=== PATIENT | female | born 2000 | race African-American/Black ===

== ENCOUNTER 2022-03-06 21:39 | Inpatient (IN) ==
[2022-03-06] MEDS ORDERED: MEPERIDINE 50 MG/1 ML VIAL IV PRN (22:12)
[2022-03-06] MEDS ORDERED: OXYTOCIN/LR 20 UNIT/1,000 ML BAG IV PRN (22:12)
[2022-03-06] MEDS ORDERED: BUTORPHANOL 2 MG/ML VIAL IV PRN (22:12)
[2022-03-06] MEDS ORDERED: METHYLERGONOVINE 0.2 MG/1 ML AMP IM PRN (22:12)
[2022-03-06] MEDS ORDERED: miSOPROStoL 200 MCG TABLET RECTAL PRN (22:12)
[2022-03-06] MEDS ORDERED: CARBOPROST TROMETHAMINE 250 MCG/ML AMP IM PRN (22:12)
[2022-03-06] MEDS ORDERED: ONDANSETRON 4 MG/2 ML VIAL IV PRN (22:12)
[2022-03-06] MEDS ORDERED: TRANEXAMIC ACID 1,000 MG in SODIUM CHLORIDE 0.9% 100 ML IV PRN (22:12)
[2022-03-06 22:30] LABS: Basophils % 0.4 % (0.0-0.8); Eosinophils % 0.3 % (0.00-10.9); Hematocrit 34.5 VOL% (35.7-47.0); Hemoglobin 10.4 GM/DL (12.0-16.0); Immature Granulocytes % 0.5 %; Immature Granulocytes Absolute 0.05 #; Lymphocytes # 2.3 10*3/uL (1.4-4.0); Lymphocytes % 24.8 % (21.3-54.2); Mean Corpuscular HGB Conc 30.1 GM/DL (32-36); Mean Corpuscular Volume 66.1 FL (87-102); Mean Platelet Volume 11.1 FL (9.6-12.0); Monocytes # 0.5 10*3/uL (0.11-0.8); Monocytes % 5.1 % (1.7-12.7); Neutrophils % 68.9 % (38.7-73.9); Platelet Count 244 T/CUMM (130-400); Red Blood Count 5.22 MC/CUMM (3.8-5.5); Red Cell Distribution Width 15.9 % (9.3-17.3); White Blood Count 9.3 T/CUMM (4-12)
[2022-03-06 22:48] LABS: Alanine Aminotransferase 12 U/L (13-56); Albumin 2.7 G/DL (3.4-5.0); Alkaline Phosphatase 214 U/L (45-117); Aspartate Amino Transferase 16 U/L (0-37); Bilirubin,Total < 0.39 MG/DL (0.20-1.00); Blood Urea Nitrogen 5 MG/DL (7-18); Calcium 9.1 MG/DL (8.5-10.1); Carbon Dioxide 24 MMOL/L (21-32); Chloride 108 MMOL/L (98-107); Glucose 93 MG/DL (74-106); Osmolality,Calculated 273.5 MOS/KG (273-304); Potassium 3.6 MMOL/L (3.5-5.1); Sodium 139 MMOL/L (136-145); Total Protein 7.2 G/DL (6.4-8.2)
[2022-03-06 23:52] LABS: Rubella Antibody IgG Result Reactive (NonReactive)
[2022-03-07] MEDS: LACTATED RINGERS 1,000 ML IV SCH ×3 (02:27→10:52)
[2022-03-07] MEDS ORDERED: OXYTOCIN/LR 30 UNIT/1,000 ML BAG IV PRN (02:45)
[2022-03-07] MEDS ORDERED: diphenhydrAMINE 50 MG/1 ML VIAL IV PRN (09:13)
[2022-03-07] MEDS ORDERED: ePHEDrine 50 MG/ML VIAL IV PRN (09:13)
[2022-03-07] MEDS ORDERED: CITRIC ACID/SODIUM CITRATE 30 ML UDCUP PO ONE (09:13)
[2022-03-07] MEDS ORDERED: LACTATED RINGERS 1,000 ML IV ONE (09:13)
[2022-03-07] MEDS ORDERED: FAMOTIDINE 20 MG/2 ML VIAL IV ONE (09:13)
[2022-03-07] MEDS ORDERED: NALOXONE 0.4 MG/ML VIAL IV PRN (09:13)
[2022-03-07] MEDS ORDERED: fentaNYL 2 MCG/ROPIV 0.2% EPID 100 ML EPIDURAL SCH (09:30)
[2022-03-07 12:31] LABS: Bilirubin,Urine Negative (Negative); Blood, Urine Negative (Negative); Glucose,Urine (UA) Negative (Negative); Ketones,Urine 20 mg/dL (Negative); Mucus,Urine Many /LPF (Occasional); Nitrite,Urine Negative (Negative); Protein,Urine Negative (Negative); Squamous Epithelial Cell,Urine Occasional /HPF (0-10); Urine Appearance CLEAR (Clear); Urine Color Yellow (Yellow); Urine Specific Gravity 1.016 (1.001-1.035)
[2022-03-07] MEDS ORDERED: miSOPROStoL 200 MCG TABLET ONE (17:18)
[2022-03-07] MEDS ORDERED: CARBOPROST TROMETHAMINE 250 MCG/ML AMP IM ONE (17:19)
[2022-03-07] MEDS ORDERED: METHYLERGONOVINE 0.2 MG/1 ML AMP ONE (17:19)
[2022-03-07 17:59] LABS: Cord Arterial Blood HCO3 22.4 MMOL/L
[2022-03-07 18:02] LABS: Cord Venous Blood HCO3 22.9 MMOL/L; Cord Venous Blood PCO2 40.8 MMHG; Cord Venous Blood PO2 24.8
[2022-03-07] MEDS ORDERED: BISACODYL 10 MG SUPP RECTAL PRN (19:33)
[2022-03-07] MEDS ORDERED: BENZOCAINE 20%/MENTHOL 0.5% SPRAY 56 GM CAN TOP PRN (19:33)
[2022-03-07] MEDS ORDERED: MEASLES/MUMPS/RUBELLA VACCINE 0.5 ML VIAL SUBCUT ONE (19:33)
[2022-03-07] MEDS ORDERED: DIPH/TET/ACEL PERT BOOSTER VACCINE 0.5 ML VIAL IM ONE (19:33)
[2022-03-07] MEDS ORDERED: WITCH HAZEL PADS 100/JAR TOP PRN (19:33)
[2022-03-07] MEDS ORDERED: ACETAMINOPHEN 325 MG TABLET PO PRN (19:33)
[2022-03-07] MEDS ORDERED: HYDROCORTISONE 2.5% RECTAL CREAM 30 GM TUBE TOP PRN (19:33)
[2022-03-07] MEDS ORDERED: RHO(D) IMMUNE GLOBULIN 300 MCG SYRINGE IM ONE (19:33)
[2022-03-07] MEDS ORDERED: OXYTOCIN/LR 20 UNIT/1,000 ML BAG IV ONE (19:33)
[2022-03-07] MEDS ORDERED: LANOLIN 50% CREAM 0.3 OZ TUBE TOP PRN (19:33)
[2022-03-07] MEDS ORDERED: oxyCODONE/ACETAMINOPHEN 5-325 MG TABLET PO PRN ×2 (19:33)
[2022-03-07] MEDS: IBUPROFEN 800 MG TABLET PO PRN (20:44)
[2022-03-08 04:54] LABS: Basophils % 0.2 % (0.0-0.8); Eosinophils % 0.1 % (0.00-10.9); Hematocrit 30.7 VOL% (35.7-47.0); Hemoglobin 9.4 GM/DL (12.0-16.0); Immature Granulocytes % 0.6 %; Lymphocytes % 11.5 % (21.3-54.2); Mean Corpuscular HGB Conc 30.6 GM/DL (32-36); Mean Corpuscular Volume 65.2 FL (87-102); Mean Platelet Volume 11.6 FL (9.6-12.0); Monocytes # 1.1 10*3/uL (0.11-0.8); Neutrophils % 81.6 % (38.7-73.9); Platelet Count 229 T/CUMM (130-400); Red Blood Count 4.71 MC/CUMM (3.8-5.5); Red Cell Distribution Width 15.7 % (9.3-17.3); White Blood Count 17.4 T/CUMM (4-12)
[2022-03-08] MEDS: DOCUSATE SODIUM 100 MG CAPSULE PO SCH ×2 (08:47→21:00)
[2022-03-08] MEDS: IBUPROFEN 800 MG TABLET PO PRN ×2 (13:45→19:59)
[2022-03-09] MEDS: IBUPROFEN 800 MG TABLET PO PRN (01:49)
[2022-03-09] MEDS: DOCUSATE SODIUM 100 MG CAPSULE PO SCH (10:30)
[2022-03-09 19:56] VITALS: BP 138/64
== END 2022-03-09 12:00 | disposition home or self-care (01) | DRG 560 ==
LOC: N.LDOUT 21:39 → N.LD 21:43 → N.OB 03-08 11:04
PROVIDERS: ADMIT Obstetrics & Gynecology; ATTEND Obstetrics & Gynecology